=== PATIENT | female | born 1965 | race Caucasian/White ===

== ENCOUNTER 2018-08-17 18:01 | Emergency (ER) | payer BC, OTHER ==
[~2018-08-17] VITALS: Ht 175.3 cm; Wt 70.3 kg
[~2018-08-17 18:01] MED LIST: CLON1TAB PO; SERT50TA PO
[2018-08-17] MEDS ORDERED: HYDR-3326 PO (18:15)
[2018-08-17] MEDS ORDERED: BUPR100T5 PO (18:15)
[2018-08-17] MEDS ORDERED: SERT50TA PO (18:15)
--- NOTE | 2018-08-17 18:25 | NUR ---
PT A/OX4, PRESENTS TO THE ER C/O RLQ ABD PAIN THAT STARTED LAST NIGHT, PAIN IS NON-PROVOKED, DULL IN QUALITY, RADIATES TOWARDS THE R LOWER BACK, 3/10, CONSTANT. PER PT, LAST BM WAS THIS AM, NORMAL IN COLOR AND CONSISTENCY. PT REPORTS ABD DISTENSION. BOWEL SOUNDS ACTIVE IN ALL 4 QUADRANTS AND SOFT ON PALPATION. VSS. PT DENIES C/P, SOB, N/V/D, DIZZINESS, HEADACHE.
[2018-08-17 18:35] LABS: *BILIRUBIN,URIN NEGATIVE (NEGATIVE); *BLOOD, URINE Trace-lysed (NEGATIVE); *CLARITY,URINE CLEAR (CLEAR); *COLOR,URINE YELLOW (YELLOW); *KETONES,URINE NEGATIVE (NEGATIVE); *UROBILINOGEN,URINE 0.2 E.U./dl (NORMAL); LEUKOCYTE ESTERASE ,URINE NEGATIVE (NEGATIVE); NITRITE, URINE NEGATIVE (NEGATIVE); UGLUCOSE NEGATIVE (NEGATIVE)
[2018-08-17 18:40] LABS: SQUAMOUS EPITHELIAL CELL,UR FEW /HPF (NONE SEEN); WBC,URINE 0-3 /HPF (0-3)
--- NOTE | 2018-08-17 18:56 | NUR ---
RORY RODRIGUEZ AT BEDSIDE FOR MSE.
--- NOTE | 2018-08-17 19:06 | NUR ---
SHIFT REPORT GIVEN TO SOBIA JERNIGAN.
[2018-08-17] MEDS ORDERED: IV NORMAL SALINE 1000 ML BAG IV ONE (19:15)
[2018-08-17 19:26] LABS: BASOPHILS % (AUTO) 0.5 % (0.0-2.0); EOSINOPHILS # (AUTO) 0.1 K/uL (0.0-0.7); EOSINOPHILS % (AUTO) 1.3 % (0.0-7.0); HEMOGLOBIN 13.9 g/dL (10.9-14.3); LYMPHOCYTES # (AUTO) 2.3 K/uL (20.0-40.0); LYMPHOCYTES % (AUTO) 32.8 % (20.5-51.5); MEAN CORPUSCULAR HEMOGLOBIN 32.3 uug (24.7-32.8); MEAN CORPUSCULAR HGB CONC 34 g/dL (32.3-35.6); MEAN CORPUSCULAR VOLUME 95.1 fL (75.5-95.3); MONOCYTES # (AUTO) 0.5 K/uL (2.0-10.0); MONOCYTES % (AUTO) 6.4 % (0.0-11.0); NEUTROPHILS # (AUTO) 4.2 K/uL (1.8-8.9); PLATELET COUNT (AUTO) 289 K/uL (179-408); RED BLOOD CELL COUNT(AUTO) 4.31 MIL/uL (3.63-4.92); WHITE BLOOD COUNT (AUTO) 7.1 K/uL (3.8-11.8)
[2018-08-17] MEDS ORDERED: SWABABLE VALVE TRANSFER SET EA MC ONE (19:28)
[2018-08-17] MEDS ORDERED: IOHEXOL 300MG/ML 100 ML INFUS..BTL ONE (19:28)
[2018-08-17] MEDS ORDERED: NORMAL SALINE FLUSH 10 ML DISP.SYRIN ONE (19:28)
[2018-08-17] MEDS ORDERED: IV NORMAL SALINE 250 ML IV ONE (19:28)
[2018-08-17 19:33] LABS: CREATININE 0.9 mg/dL (0.6-1.3)
[2018-08-17 19:39] LABS: BILIRUBIN,DIRECT 0.1 mg/dL (0.0-0.2); BILIRUBIN,TOTAL 0.3 mg/dL (0.2-1.0); TOTAL PROTEIN, SERUM 7.8 g/dL (6.4-8.2)
--- NOTE | 2018-08-17 20:25 | NUR ---
Patient back in ER from CT scan.
--- NOTE | 2018-08-17 21:43 | NUR ---
Pt sitting up in bed with friend at bedside, in no acute distress.
--- NOTE | 2018-08-17 21:50 | NUR ---
Dr. Cedeno at bedside for update.
--- NOTE | 2018-08-17 22:05 | NUR ---
IV discontinued. Pressure applied. No s/s of infection or active bleeding.
--- NOTE | 2018-08-17 22:06 | NUR ---
Patient discharged to home in stable conditon. Written and verbal after care instructions given. Patient verbalizes understanding of instructions.
[2018-08-17 22:07] VITALS: BP 116/82
== END 2018-08-17 22:08 | disposition home or self-care (01) ==
LOC: ER 18:05
DX: R10.31 Right lower quadrant pain (principal); Z90.710 Acquired absence of both cervix and uterus; Z79.891 Long term (current) use of opiate analgesic; Z79.899 Other long term (current) drug therapy
CPT/HCPCS: 36415; 71045; 74177; 80048; 80076; 81001; 83690; 84484; 85025; 85730; 93005; 99284; Q9967; 70030-TC; A4663; J3490; J7030; J7050